=== PATIENT | female | born 1965 | race Caucasian/White ===

== ENCOUNTER → 2016-10-21 | Outpatient (CLI) | payer OTHER ==
[~2016-10-21] MED LIST: ATOR1TAB19 PO; LEVO137T2 PO; NEXI40CA PO; STOO100C PO; VITA-182 PO
--- NOTE | 2016-10-21 16:03 | REP ---
Nasal bone series three views: There is no nasal bone fracture. The orbital rims appear intact. The visualized paranasal sinuses are unremarkable. Impression: Negative nasal bone series. Signed by Joey Burgos MD 10/21/2016 03:55 P
--- NOTE | 2016-10-21 16:04 | REP ---
Right ankle four views: There is a nondisplaced fracture of the distal fibula. The mortise is symmetric. Mineralization is normal. No calcifications or foreign bodies. There are small calcaneal spurs. Signed by Joey Burgos MD 10/21/2016 03:56 P
== END ==
LOC: M LRY 14:37
PROVIDERS: ATTEND Nurse Practitioner Family
DX: S09.92XA Unspecified injury of nose, initial encounter (principal); S82.831A Other fracture of upper and lower end of right fibula, initial encounter for closed fracture; X58.XXXA Exposure to other specified factors, initial encounter; Y92.89 Other specified places as the place of occurrence of the external cause; Y93.89 Activity, other specified; Y99.8 Other external cause status; M77.31 Calcaneal spur, right foot; M25.571 Pain in right ankle and joints of right foot

== ENCOUNTER → 2017-06-28 | Outpatient (REF) | payer OTHER ==
[2017-06-28 15:52] LABS: RHEUMATOID FACTOR QUANT < 10.0 IU/ML (<15.0)
[2017-06-28 15:52] LABS: C REACTIVE PROTEIN QUANTITATIV < 0.30 MG/DL (0.00-0.30)
[2017-06-28 16:07] LABS: BASO % 0.5 % (0.0-1.0); EOS # 0.2 10^3/uL (0.0-0.50); EOS % 3.2 % (0.0-3.0); HEMATOCRIT 42.9 % (36.0-47.0); HEMOGLOBIN 13.7 g/dl (12.0-15.5); IMMATURE GRANULOCYTE % 0.4 % (0-3.0); LYMPH # 2.3 10^3/uL (1.5-4.5); LYMPH % 41.3 % (24.0-44.0); MEAN CORPUSCULAR HEMOGLOBIN 30.4 pg (27.0-33.0); MEAN CORPUSCULAR HGB CONC 31.9 g/dl (32.0-36.5); MEAN CORPUSCULAR VOLUME 95.3 fl (80.0-96.0); MONO # 0.3 10^3/uL (0.0-0.8); MONO % 6.1 % (0.0-5.0); NEUTROPHILS # 2.7 10^3/uL (1.8-7.7); NEUTROPHILS % 48.5 % (36.0-66.0); PLATELET COUNT, AUTOMATED 176 10^3/uL (150-450); RED CELL DISTRIBUTION WIDTH 13.6 % (11.5-14.5); WHITE BLOOD COUNT 5.6 10^3/uL (4.0-10.0)
[2017-06-28 16:44] LABS: ERYTHROCYTE SEDIMENTATION RATE 9 mm/hr (0-20)
[2017-07-01 00:07] LABS: ANTINUCLEAR ANTIBODIES DIRECT Negative (Negative); Lyme Disease IgG/IgM Antibodie <0.91 ISR (0.00-0.90); Lyme Disease IgM Ab Quantitati <0.80 index (0.00-0.79)
== END ==
LOC: M LABDRAW1 13:35
DX: Z47.89 Encounter for other orthopedic aftercare (principal)
CPT/HCPCS: 86140

== ENCOUNTER 2018-06-03 09:57 | Day surgery (SDC) | payer OTHER ==
[~2018-06-03] VITALS: Ht 177.8 cm; Wt 99.8 kg
[~2018-06-03 09:57] MED LIST changes: +GLUC15002 PO; +NS 1,000 ML IV ONE; +SERT25TA PO
[2018-06-03] MEDS ORDERED: PROPOFOL 500 MG/50 ML VIAL As Ordered ONE (11:31)
[2018-06-03] MEDS ORDERED: LIDOCAINE 2% INJ 100 MG/5 ML SDV (FOR ANES.) As Ordered ONE (11:31)
--- NOTE | 2018-06-03 12:00 | ROOR ---
Patient Name: Jessica Yepez Procedure Date: 06/03/2018 11:26 AM Date of : 1965 Age: 52 Room: [facility] Gender: Female Note Status: Finalized Procedure: Total Colonoscopy to Cecum + ileoscopy + Bx Indications: High risk colon cancer surveillance: Personal history of colonic polyps Providers: Naga White MD Referring MD: Naga White MD Requesting Provider: Medicines: Monitored Anesthesia Care Complications: No immediate complications. Procedure: Pre-Anesthesia Assessment: - The heart rate, respiratory rate, oxygen saturations, blood pressure, adequacy of pulmonary ventilation, and response to care were monitored throughout the procedure. The Colonoscope was introduced through the anus and advanced to 3 cm into the ileum. The colonoscopy was performed without difficulty. The patient tolerated the procedure well. The quality of the bowel preparation was excellent. Findings: The perianal and digital rectal examinations were normal. Non-bleeding internal hemorrhoids were found during retroflexion. The hemorrhoids were small and Grade I (internal hemorrhoids that do not prolapse). Multiple medium-mouthed diverticula were found in the recto-sigmoid colon, sigmoid colon and descending colon. Multiple sessile polyps were found in the ascending colon. The polyps were small in size. These polyps were removed with a jumbo cold forceps. Resection and retrieval were complete. A localized area of mildly altered vascular and erythematous mucosa was found in the rectum. Biopsies were taken with a cold forceps for histology. The exam was otherwise without abnormality on direct and retroflexion views. The terminal ileum appeared normal. Impression: - Non-bleeding internal hemorrhoids. - Diverticulosis in the recto-sigmoid colon, in the sigmoid colon and in the descending colon. - Multiple small polyps in the ascending colon, removed with a jumbo cold forceps. Resected and retrieved. - Altered vascular and erythematous mucosa in the rectum. Biopsied. - The examination was otherwise normal on direct and retroflexion views. - The examined portion of the ileum was normal. - The exam was otherwise normal to the cecum. Recommendation: - Patient has a contact number available for emergencies. The signs and symptoms of potential delayed complications were discussed with the patient. Return to normal activities tomorrow. Written discharge instructions were provided to the patient. - High fiber diet. - Discharge patient to home. - Continue present medications. - Await pathology results. - Telephone GI clinic for pathology results in 1 week. - Repeat colonoscopy in 5 years for surveillance based on pathology results. - Return to referring physician. - The findings and recommendations were discussed with the patient's family. Naga White MD Naga White MD 06/03/2018 11:59:47 AM This report has been signed electronically. Number of Addenda: 0 Note Initiated On: 06/03/2018 11:26 AM Estimated Blood Loss: Estimated blood loss: none.
[2018-06-03 12:15] VITALS: BP 123/72
== END 2018-06-03 12:41 | disposition home or self-care (01) ==
LOC: M OPP 09:57
PROVIDERS: ATTEND Internal Medicine Gastroenterology
DX: Z12.11 Encounter for screening for malignant neoplasm of colon (principal); Z86.010 Personal history of colon polyps; Z83.71 Family history of colonic polyps; K64.0 First degree hemorrhoids; D12.2 Benign neoplasm of ascending colon; K62.1 Rectal polyp; K62.89 Other specified diseases of anus and rectum; K57.30 Diverticulosis of large intestine without perforation or abscess without bleeding; Z79.899 Other long term (current) drug therapy; Z88.0 Allergy status to penicillin

== ENCOUNTER → 2022-07-27 | Outpatient (CLI) | payer OTHER ==
[~2022-07-27] MED LIST changes: +MM S100C PO; -NS 1,000 ML IV ONE; -SERT25TA PO; +SERT25TA85 PO; -STOO100C PO
== END ==
LOC: M WUC 13:02
PROVIDERS: ATTEND Physician Assistant
DX: M25.80 Other specified joint disorders, unspecified joint (principal)